=== PATIENT | female | born 1955 | race Caucasian/White ===

== ENCOUNTER → 2017-03-06 | Outpatient (CLI) | payer MEDICARE ==
[~2017-03-06] MED LIST: ASA325 MG PO; BETAPACE DPS80 MG PO; HYDREA DPS500 MG PO; NORCO 5-325 TA1 EACH PO; XANAX DPS0.25 MG PO; XARELTO20 MG PO
== END | disposition home or self-care (01) ==
LOC: RAD.S 13:50
DX: R10.13 Epigastric pain (principal); K80.20 Calculus of gallbladder without cholecystitis without obstruction; E27.8 Other specified disorders of adrenal gland; K86.89 Other specified diseases of pancreas

== ENCOUNTER 2017-05-04 14:03 | Inpatient (IN) | payer MEDICARE, OTHER ==
[~2017-05-04] VITALS: Ht 180.3 cm; Wt 109.0 kg
--- NOTE | ~2017-05-04 | HP ---
ADMIT: 05/04/2017 RM/LOC: 620 [facility] MR#: [id number] [address] [address] [place] [address] History and Physical SEX: F AGE: 61 : 1955 DATE OF SERVICE: 05/04/2017 CHIEF COMPLAINT: Right-sided pheochromocytoma as well as acute cholecystitis and cholelithiasis. HISTORY OF PRESENT ILLNESS: This is a pleasant 61-year-old female patient of Dr. Sandra Padilla and Dr. Otilio Willis who had been preparing for the surgery for a while now. 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 She has been on her phenoxybenzamine for at least 2-1/2 weeks now and is pretty woozy and orthostatic with this. She has been on 20 mg twice a day with that. She has increased her salt and fluid intake and is now to the point where she is ready for surgery. Her blood pressure has been under good control and again, she has been fairly orthostatic with this. PAST MEDICAL HISTORY: Illnesses include history of atrial fibrillation, history of venous thrombosis, this right-sided pheochromocytoma, left-sided pancreatic cyst. She has had a previous kidney cancer with nephrectomy on the left side. She also has acute cholecystitis and cholelithiasis. She has hypercalcemia. PREVIOUS PROCEDURES: She has had a left-sided nephrectomy. She has had a complete colonoscopy. She has also had a tonsillectomy, appendectomy, and hysterectomy. CURRENT MEDICATIONS: She has been on: 1. Regular strength aspirin. 2. Hydroxyurea. 3. Phenoxybenzamine. 4. Tramadol. 5. Xanax. 6. Xarelto. Aspirin and Xarelto have been held. 1. She has been on Lovenox and that she took last night, but we will give her another dose today, just 40 mg. SOCIAL HISTORY: She denies tobacco or alcohol use. FAMILY HISTORY: Noncontributory. REVIEW OF SYSTEMS: A 10-point review of systems essentially negative with exception of her occasional headaches, hypertension, symptoms associated with her pheochromocytoma. PHYSICAL EXAMINATION: GENERAL: She is alert. She is oriented. She is currently in no acute distress. VITAL SIGNS: Stable. HEENT: Normal. LUNGS: Clear. HEART: Regular. ADMIT: 05/04/2017 RM/LOC: 620 [facility] MR#: [id number] [address] [address] [place] [address] History and Physical SEX: F AGE: 61 : 1955 ABDOMEN: At this time is nontender. No mass or organomegaly appreciated. EXTREMITIES: Warm and pink without edema. LABORATORY DATA: Her labs today all look fine. ASSESSMENT: Right-sided pheochromocytoma as well as acute cholecystitis and cholelithiasis. PLAN: I had a long discussion again today with her. She had not had her morning dose of phenoxybenzamine, she has been on 20 mg twice a day. Thankfully, we were able to get a 20 mg dose from [facility] here in town. So, we will give that to her tonight. She is still orthostatic, so I think she is adequately alpha-blocked. I went through the risks and benefits again of right-sided laparoscopic adrenalectomy as well as a laparoscopic cholecystectomy with cholangiogram. She understands all this and anxious to proceed. Anesthesia is here talking to her, she will get an art line preoperatively. We will also probably place a central venous line for her at the time of her surgery. She understands that there is also a risk for conversion to open with this procedure. Perry Moreno MD/ eloy JOB #: [id number] CC: Perry Moreno, Attending Physician Sandra Padilla, Family Physician
--- NOTE | ~2017-05-04 | ECH ---
Transthoracic Echocardiography Report (TTE) Demographics Patient Name KEVYN WHALEN Date of Study 05/08/2017 Patient Number [id number] Visit Number [id number] Date of 1955 Room Number 410 Accession Number [id number] Gender Female Age 61 year(s) Referring Ayde BYRD Scalloper Yesenia Peña [facility] Physician Dionte Physician Interpreting Diaz Vincent MD Fast Food Attendant Physician Supervising Ordering Physician Ayde Rapp MD/[facility] Nurse Stress Reception Conclusions Summary Technically fair exam. The estimated left ventricular ejection fraction is 60-65% in underlying atrial fibrillation. Mild to moderate left ventricular hypertrophy. No significant valvular abnormalities. Procedure Type of Study TTE procedure:Echo Complete SF. Procedure Date Date: 05/08/2017 Start: 08:26 AM Technical Quality: Adequate visualization Indications:Atrial fibrillation. Appropriate Use Criteria: 9 Height: 71 inches Weight: 248 pounds BSA: 2.31 m Rhythm: Atrial fibrillation HR: 60 bpm BP: 108/51 mmHg M-Mode/2D Measurements LV Diastolic Dimension: 5.13 cm LV Systolic Dimension: 3.53 cm LV Septum Diastolic: 1.1 cm LV PW Diastolic: 1.39 cm AO Root Dimension: 2.91 cm Cardiac Output: 2.34 l/min LA Dimension: 4.14 cm Cardiac Index: 1.01 l/min*m RV Diastolic Dimension: 3.4 cm LA volume index: 31 ml/m LVOT: 1.87 cm LVOT VTI: 14.21 cm RV Base: 2.9 cm LV Stroke volume: 39.01 ml RV Mid: 2.8 cm LV Stroke volume index: 16.89 ml/m RV Length: 7.9 cm Doppler Measurements AV Mean Gradient: 3.4 mmHg MV Peak E-Wave: 0.58 m/s LVOT Peak Velocity: 0.81 m/s AV Area (Continuity):2.09 cm TR Velocity:1.92 m/s TR Gradient:14.75 mmHg PV Peak Velocity: 1.17 m/s Estimated RAP:3 mmHg PV Peak Gradient: 5.43 mmHg Estimated RVSP: 18 mmHg Estimated PASP: 17.75 mmHg RA Area: 19.03 cm Findings Left Ventricle Normal left ventricle size and function. Mild to moderate left ventricular hypertrophy. Diastolic function indeterminate due to patient's arrhythmia. Right Ventricle Normal right ventricle structure and function. Left Atrium Normal left atrial size. Right Atrium The right atrium is mildly dilated. Mitral Valve Normal mitral valve structure and function. Mild mitral regurgitation by color Doppler. Aortic Valve Normal aortic valve structure and function. Tricuspid Valve Normal appearing tricuspid valve. Trivial tricuspid regurgitation by color Doppler. Pulmonic Valve Normal pulmonic valve structure and function. Pericardial Effusion No evidence of pericardial effusion. Miscellaneous Visualized portions of the aortic root and ascending aorta appear normal in size. Pleural Effusion No evidence of pleural effusion. Signature
--- NOTE | 2017-05-08 14:37 | CVR ---
ADMIT: 05/04/2017 RM/LOC: 410 [facility] MR#: [id number] [address] [address] [place] [address] Cardioversion Report SEX: F AGE: 61 : 1955 DATE: 05/08/2017 PROCEDURE: Cardioversion. INDICATION: Atrial fibrillation. DESCRIPTION OF THE PROCEDURE: Following informed consent in the patient's room with Anesthesia, conscious sedation was delivered. Following adequate sedation and anesthesia, a single shock of biphasic energy was delivered with the pads in the anterior posterior position. No complications noted. We will maintain her on sotalol 80 mg p.o. b.i.d. Followup with her on EKG on Thursday, and follow up with her in 2-3 weeks. Florinda Perales MD/ cecile JOB #: [id number] CC: Perry Moreno, Attending Physician Sandra Padilla, Family Physician
[2017-05-09] MEDS ORDERED: ASA325 MG PO (11:38)
[2017-05-09] MEDS ORDERED: HYDREA DPS500 MG PO (11:38)
[2017-05-09] MEDS ORDERED: XARELTO20 MG PO (11:38)
[2017-05-09] MEDS ORDERED: NORCO 5-325 TA1 EACH PO (11:39)
[2017-05-09] MEDS ORDERED: BETAPACE DPS80 MG PO (11:39)
[2017-05-09] MEDS ORDERED: XANAX DPS0.25 MG PO (11:39)
--- NOTE | 2017-05-18 07:03 | CO ---
ADMIT: 05/04/2017 RM/LOC: 410 [facility] MR#: [id number] [address] [address] [place] [address] Consultation SEX: F AGE: 61 : 1955 DATE OF CONSULTATION: 05/07/2017 ATTENDING PHYSICIAN: Perry Moreno CONSULTING PHYSICIAN: Dionte Messer MD REASON FOR CONSULT: Atrial fibrillation. HPI: The patient presents today as a postop patient from a right adrenalectomy and cholecystectomy. Today, around 2 o'clock while the patient was trying to have the bowel movement, she started to feel palpitations, lightheadedness, fatigue, and dyspnea on exertion. These symptoms have persisted episodically throughout today. It was discovered that the patient had went into atrial fibrillation. The patient does have a history of atrial fibrillation that occurred back in 2012 when she had a DVT and pulmonary embolism. The patient had cardioversion in 2012 and she has not been in atrial fibrillation since. The patient also reports that she has had episodes of chest pain that she describes as pressure since the atrial fibrillation has started. She had one episode that was worse than the others that she rated as a 10/10 in severity and lasted a couple of minutes. She has had a couple other episodes today as well that she rated as a 6/10 in severity. All of these have which occurred when the patient has been getting up and moving around. The patient denies having any chest pain over the past couple of years. Her last episode of chest pain was when she was diagnosed with atrial fibrillation back in 2012. She does state that the chest pain she is experiencing today is different than the chest pain she experienced back in 2012 as the pain in 2013 was far worse in severity. The patient was started on diltiazem as well as Xarelto. The patient's cardiac history is unremarkable outside of atrial fibrillation. She denies any heart attacks or murmurs. She has never had a stress test done. She has had one echo done in 2013 revealing an ejection fraction of 50% and mild right ventricular hypertrophy enlargement. The patient's vascular history is pertinent for DVTs, PEs, and varicose veins. Her cardiovascular risk factor survey reveals a 29-dggn-ctuw smoking history. She stopped smoking a year ago. Negative history for hypertension, high cholesterol, or diabetes. PAST MEDICAL HISTORY: Significant illnesses: DVT, pulmonary embolism, UTI, renal cell carcinoma, anxiety, depression, knee arthritis, cholecystitis, pheochromocytoma, and atrial fibrillation. SURGERIES: Knee scope, total abdominal hysterectomy/bilateral salpingectomy, left nephrectomy, cholecystectomy, tonsillectomy, bilateral tubal ligation, breast lump removal, appendectomy, and adrenalectomy. HOME MEDICATIONS: 1. Aspirin 325 mg p.o. daily. 2. Hydroxyurea 500 mg p.o. b.i.d. ADMIT: 05/04/2017 RM/LOC: 410 [facility] MR#: [id number] [address] [place] [address] [place] [address] Consultation SEX: F AGE: 61 : 1955 3. Xarelto 20 mg p.o. daily. 4. Alprazolam 0.25 mg p.o. t.i.d. p.r.n. 5. Lovenox 150 mg subcutaneous daily. 6. Phenoxybenzamine 20 mg p.o. b.i.d. FAMILY HISTORY: Negative for heart disease. Mother with diabetes, breast cancer, and uterine cancer. Dad; thyroid cancer, melanoma, and stroke. SOCIAL HISTORY: The patient does not follow a special diet. Denies use of caffeine, alcohol, or drug use or abuse. REVIEW OF SYSTEMS: GENERAL: The patient does report tiring easily. She denies recent fever, chills or sweats, or recent weight gain or weight loss. EYES: Denies blurry vision, glaucoma, cataracts, or partial or total loss of vision. THROAT, MOUTH, AND EARS: Denies problems with nose, sinus, throat, hearing, or ears. RESPIRATORY: Negative for asthma, wheezing, COPD, chronic cough, or bloody sputum. The patient does report she snores loudly. Denies waking up more than once a night. Waking up gasping for air or feeling tired first thing in the morning. GASTROINTESTINAL: Negative for heartburn, dysphagia, hernias, stomach ulcers, bleeding into the stools, or liver disease. Positive for gallbladder problems. GENITOURINARY TRACT: Negative for blood in urine, problems with urination, bladder stones, kidney stones, or kidney failure. MUSCULOSKELETAL: Negative for gout, muscle pains, or joint pains. ENDOCRINE: Positive for thyroid problems. Reports abnormal thyroid cells. HEMATOLOGY/LYMPHATIC: Negative for bleeding problems. Positive for kidney cancer. NEUROLOGIC: Positive for numbness and tingling in hands and feet occasionally. Negative for chronic headaches, stroke, or seizure disorder. PSYCHIATRIC: Positive for depression and anxiety. Negative for mental illnesses. PHYSICAL EXAMINATION: VITALS: Temperature afebrile, pulse 140, respiratory rate 18, blood pressure 124/85, and O2 saturation 94% on room air. GENERAL: Alert, oriented x3. No acute distress. HEENT: Normocephalic, atraumatic. NECK: Absent lymph nodes, JVD, or bruits. HEART: Irregular rate and rhythm. Tachycardic. LUNGS: Expiratory wheezing. ABDOMEN: Soft, nontender, postop. EXTREMITIES: ENA hose on, absent edema. ADMIT: 05/04/2017 RM/LOC: 410 [facility] MR#: [id number] [address] [place] [address] Consultation SEX: F AGE: 61 : 1955 LABS: Sodium 146, potassium 4.6, chloride 112, CO2 of 28, BUN 20, creatinine 0.9, glucose 96. White blood cell count 4.9, hemoglobin 12.4. ASSESSMENT: 1. Atrial fibrillation with rapid ventricular rate - new onset at 3:30 yesterday. She does have a history of atrial fibrillation with a PE in 2012. She is postop day two. Check TSH. Check cardiac enzymes. Do echo tomorrow morning. Add sotalol 80 mg p.o. every [address] angiogram of chest with history of PE. 2. Postop day #2, adrenalectomy and cholecystectomy. 3. Pheochromocytoma. 4. Renal cell carcinoma. CJ Marie Student / Dionte Messer MD / eloy JOB #: [id number] CC: Perry Moreno, Attending Physician Sandra Padilla, Family Physician
--- NOTE | 2017-05-19 07:06 | OR ---
ADMIT: 05/04/2017 RM/LOC: 620 [facility] MR#: [id number] [address] [address] [place] [address] Operative/Delivery Room Report SEX: F AGE: 61 : 1955 SURGERY DATE: 05/05/2017 SURGEON: Perry Moreno MD PREOPERATIVE DIAGNOSES: 1. Right-sided pheochromocytoma. 2. Acute cholecystitis and cholelithiasis. PROCEDURE PERFORMED: 1. Right internal jugular central venous line placement with ultrasound. 2. Laparoscopic right adrenalectomy. 3. Laparoscopic cholecystectomy with intraoperative cholangiogram. HEALTH PROMOTION MANAGER: Jose Zelaya MD ANESTHESIA: General endotracheal. ESTIMATED BLOOD LOSS: Less than 20 mL. DESCRIPTION OF PROCEDURE: After appropriate informed consent was obtained, the patient was brought to the operating room. General endotracheal anesthesia was induced. The patient's right neck was prepped and draped in a sterile fashion. A full gown and drapes were utilized. A sterile ultrasound is to identify a large right internal jugular vein. An 18-gauge Cook needle on a syringe was used to access right internal jugular vein under real-time ultrasound guidance. Good return of dark red, nonpulsatile blood. Guidewire passed easily and then via Seldinger technique, a 7-Greenlandic, three-lumen catheter was placed to 17 cm to skin edge. All three ports were aspirated and flushed easily. It was then sewn into place and sterile dressing was applied. I then proceeded with the adrenalectomy. The patient was positioned with her right side up and held in place with a jansen bag and all of her extremities appropriately padded. Her abdomen and right flank were then prepped and draped in sterile fashion. I started with the incision in the subxiphoid epigastric region. Veress needle was introduced. The abdomen was insufflated with CO2. A series of four ports were initially placed. The initial port in the subxiphoid region was too high given that she had a very large liver so I placed another 5 mm port down lower in the supraumbilical position. Liver retractor was placed and the right lobe of liver was retracted up and away from the retroperitoneum any adhesions that were taken down. The peritoneum was incised with hook electrocautery. We are able to easily identify the enlarged adrenal gland. The vena cava was also identified. I opened the peritoneum up over the top of the vena cava and swept this laterally. I was unable to work along that groove between the adrenal gland and the vena cava and carefully dissected things free using hook electric total crypt hook electric cautery and prospective hemostasis. The adrenal gland came into view pretty quickly. We worked for a while gently cleaning that off and getting enough length to get clips on it. I was able to put three clips on the vena cava side and a single clip on the adrenal side. It should be noted, a third ADMIT: 05/04/2017 RM/LOC: 620 [facility] MR#: [id number] [address] [place] [address] [place] [address] Operative/Delivery Room Report SEX: F AGE: 61 : 1955 clip on the cava side basically got the more proximal aspect of the vein before transected across completely. Next, I continued the dissection circumferentially around the adrenal gland taking care to avoid injury to the kidney and the renal vein which were easily identified. The dissection was taken along again the groove between the cava and the adrenal gland, the gland laid somewhat posterior to the vena cava. So, I had to carefully roll that vena cava over and dissect the adrenal gland from the posterior aspect of the vein and then off the musculature posteriorly. With some careful and tedious dissection, I was able to free everything up. Any small veins in small arterial branches were taken with Harmonic. With the gland completely freed up, I felt comfortable, I had the entirety gland removed did not leave any pieces of the high in fact I took cerebellar perirenal fat with this to make sure a good margin was all way around this gland. The gland was then placed into an EndoCatch bag and brought out through one of the larger port sites. The port was reintroduced. The right upper quadrant. In the adrenal fossa was then irrigated out with warm saline. Once I was satisfied everything appeared hemostatic. The liver was allowed to fall back down over that space. I then proceeded with the cholecystectomy. Given that we had multiple ports in place we just proceeded with the cholecystectomy through its existing ports. Her liver was again very large which made the dissection a little more difficult but were unable to grasp onto the gallbladder retracted up over the edge of liver. The fat and peritoneum overlying the infundibular peel peeled away. It was a somewhat edematous plane. The cystic duct was skeletonized out. A single clip was placed on cystic duct on the gallbladder side. This was done with a 5 mm clip stone rigger. Since had a 5 mm port in the upper epigastric region. A small ductotomy was made. Cholangiogram catheter was introduced. Intraoperative cholangiogram was obtained. This was somewhat difficult just given that she was positioned up into this deep lateral position. I was able to see the right left hepatic ducts. The common duct. We had a fairly short cystic duct. I was able to see contrast emptying into the duodenum with no evidence of any filling defects. The catheter was removed. Then removed. Three clips placed on cystic duct on the patient's side and the cystic duct was cut between clips. The cystic artery was next identified, clipped, and divided. The gallbladder was then reflected off the liver bed using hook electrocautery. The gallbladder freed up, was placed in EndoCatch bag and brought out through the one of the port sites. The port was ADMIT: 05/04/2017 RM/LOC: 620 [facility] MR#: [id number] [address] [address] [place] [address] Operative/Delivery Room Report SEX: F AGE: 61 : 1955 reintroduced. Right upper quadrant irrigated and suctioned out. There is a little bit of bleeding from liver bed, this was controlled with cautery. Once I was satisfied hemostasis, all the larger wounds at the 11 mm trocar sites were closed with multiple interrupted oh Vicryl sutures using a laparoscopic suture passing device. There were a total of 311 mm port site. We closed the fascial defect on. The abdomen was next desufflated, ports removed, skin closed with 4-0 Monocryl in the subcuticular layer. Sterile dressings were applied. Perry Moreno MD/ eloy JOB #: [id number] CC: Perry Moreno, Attending Physician Sandra Padilla, Family Physician MD Otilio Mejia MD
--- NOTE | 2017-06-08 14:00 | DS ---
ADMIT: 05/04/2017 RM/LOC: 410 [facility] MR#: [id number] [address] [address] KEVYN WHALEN [place] [address] Discharge Summary SEX: F AGE: 61 : 1955 ADMISSION DATE: 05/04/2017 DISCHARGE DATE: 05/08/2017 ADMITTING DIAGNOSES: 1. Right-sided pheochromocytoma. 2. Acute cholecystitis and cholelithiasis. DISMISSAL DIAGNOSES: 1. Pheochromocytoma. 2. Chronic cholecystitis. 3. Atrial fibrillation. 4. DVT (deep venous thrombosis). 5. Pancreatic cyst. 6. Kidney cancer. PROCEDURES: 1. Right internal jugular central venous line placement. 2. Laparoscopic right adrenalectomy. 3. Laparoscopic cholecystectomy with intraoperative cholangiogram. HOSPITAL COURSE: The patient was an inpatient admit with routine med/surg orders. She was admitted prior to surgery. After surgery, the patient transferred to the floor without any complications. She was then transferred to med/surg with tele orders. Overall, the patient recovered well while in the hospital. She was tolerating IV pain medicine and was able to transition to oral pain medicine. The patient was recovering well and was deemed able to be discharged home on 05/07/2017. She was restarted on her anticoagulants at this time. Apparently prior to dismissal, the patient's heart rate went up and she had an exacerbation of her atrial fibrillation. Discharge was canceled for the and she was put on Cardizem drip. Cardiology was consulted at this point. Because of this, the patient underwent cardioversion which put her back into sinus rhythm. Afterwards, she was deemed stable and was able to discharge home on 05/08/2017. DISCHARGE INSTRUCTIONS: 1. Follow up with Dr. Perales on May 11. 2. Follow up with Dr. Moreno in clinic in 10-14 days. 3. No lifting anything greater than 20 pounds. ADMIT: 05/04/2017 RM/LOC: 410 [facility] MR#: [id number] [address] [address] [place] [address] Discharge Summary SEX: F AGE: 61 : 1955 4. Follow up with Dr. Padilla on May 20. 5. Follow up with Dr. Willis on June 04. 6. Follow up with CJ Hernandez on Thursday, May 29. DISCHARGE MEDICATIONS: 1. Aspirin 325 mg daily. 2. Xarelto 20 mg daily. 3. Hydroxyurea 500 mg b.i.d. 4. Alprazolam 0.25 mg t.i.d. p.r.n. 5. [place] 5/325 1-2 tabs q.4-6 hours p.r.n. 6. Betapace 80 mg q.12 hours. CJ Blackwell / Perry Moreno MD / vdg JOB #: [id number] CC: Perry Moreno MD, Attending Physician Sandra Padilla MD, Family Physician
== END 2017-05-08 16:20 | disposition home or self-care (01) | DRG 614 ==
LOC: 4PCU 14:03 → 6PED 14:03 → 5MS 05-06 14:24 → 4PCU 05-07 14:22
PROVIDERS: ADMIT Surgery
PROC: 0FT44ZZ Resection of Gallbladder, Percutaneous Endoscopic Approach (ICD-10-PCS; principal; 2017-05-05)
PROC: BF131ZZ Fluoroscopy of Gallbladder and Bile Ducts using Low Osmolar Contrast (ICD-10-PCS; principal; 2017-05-05)
PROC: 0GT34ZZ Resection of Right Adrenal Gland, Percutaneous Endoscopic Approach (ICD-10-PCS; principal; 2017-05-05)
DX: D35.01 Benign neoplasm of right adrenal gland (principal); K80.00 Calculus of gallbladder with acute cholecystitis without obstruction; K86.2 Cyst of pancreas; J98.11 Atelectasis; F32.9 Major depressive disorder, single episode, unspecified; F41.9 Anxiety disorder, unspecified; I83.90 Asymptomatic varicose veins of unspecified lower extremity; E83.52 Hypercalcemia; I48.91 Unspecified atrial fibrillation; Z86.718 Personal history of other venous thrombosis and embolism; Z85.528 Personal history of other malignant neoplasm of kidney; Z90.5 Acquired absence of kidney; Z79.82 Long term (current) use of aspirin; Z87.891 Personal history of nicotine dependence